=== PATIENT | male | born 1975 | race African-American/Black ===

== ENCOUNTER 2020-06-14 10:07 | Emergency (ER) | payer OTHER ==
[~2020-06-14 10:07] MED LIST: CATAPRES0.1 MG PO; COREG25 MG PO; HUMALOG 75100 UNIT/M SQ; HYDRALAZINE25 MG PO; LANTUS100 UNIT/1 SC; LASIX20 MG PO; LIPITOR40 MG PO; NORVASC5 MG PO; PERCOCET 5-3251 EACH PO; PRILOSEC20 MG PO; SERTRALINE HCL25 MG PO; SPS15 GM/60 M PO; VASOTEC5 MG PO; VITAMIN D2000 UNIT PO; ZOFRAN4 MG PO
[2020-06-14 11:46] LABS: BASOPHIL 0.2 % (0-2); EOSINOPHIL 0.3 % (0-5); HCT 27.9 % (42.0-52.0); HGB 8.7 g/dl (13.2-18.0); LYMPHOCYTE 5.5 % (15-48); MCHC 31.2 g/dL (32.0-36.0); MCV 86.6 fL (78.0-100.0); MONOCYTE 11.2 % (0-12); MPV 12.7 fL (6.0-9.5); NRBC 0; PLT 212 K/uL (150-400); RBC 3.22 M/uL (4.70-6.00); RDW 11.9 % (11.5-14.0); WBC 14.4 K/uL (4.0-10.5)
[2020-06-14 12:05] LABS: LACTIC ACID 0.8 mmol/L (0.4-1.9)
[2020-06-14 13:00] LABS: ALBUMIN 2.5 g/dL (3.4-5.0); BILIRUBIN - TOTAL 0.6 mg/dL (0.2-1.0); BUN/CREAT RATIO (CALC) 14.3 RATIO; CREATININE 5.16 mg/dL (0.67-1.17); GLOBULIN (CALCULATION) 3.8 g/dL; POTASSIUM 4.7 mmol/L (3.5-5.1); TOTAL PROTEIN 6.3 g/dL (6.4-8.2)
== END 2020-06-14 17:28 | disposition other institution (70) ==
LOC: FER 10:07
PROVIDERS: Emergency Medicine
DX: M86.8X7 Other osteomyelitis, ankle and foot (principal); I12.9 Hypertensive chronic kidney disease with stage 1 through stage 4 chronic kidney disease, or unspecified chronic kidney disease; N18.4 Chronic kidney disease, stage 4 (severe); Z89.511 Acquired absence of right leg below knee; Z20.822 Contact with and (suspected) exposure to COVID-19
CPT/HCPCS: 36415; 73700; 80053; 83605; 84145; 85025; 87040; J3370; J7050; U0002

== ENCOUNTER 2020-11-08 21:24 | Emergency (ER) | payer OTHER ==
[2020-11-08 22:35] LABS: BASOPHIL 0.5 % (0-2); EOSINOPHIL 2.2 % (0-5); HCT 28.4 % (42.0-52.0); LYMPHOCYTE 27.3 % (15-48); MCH 27.2 pg (25.0-31.0); MCHC 31.7 g/dL (32.0-36.0); MCV 85.8 fL (78.0-100.0); MONOCYTE 13.9 % (0-12); MPV 12.9 fL (6.0-9.5); NEUTROPHIL 55.8 % (41-80); NRBC 0; PLT 200 K/uL (150-400); RBC 3.31 M/uL (4.70-6.00); RDW 13.8 % (11.5-14.0); WBC 6.4 K/uL (4.0-10.5)
[2020-11-08 22:52] LABS: BILIRUBIN - TOTAL 0.2 mg/dL (0.2-1.0); BUN/CREAT RATIO (CALC) 13.7 RATIO; CREATININE 3.64 mg/dL (0.67-1.17); GLOBULIN (CALCULATION) 3.9 g/dL; POTASSIUM 5.6 mmol/L (3.5-5.1); TOTAL PROTEIN 6.9 g/dL (6.4-8.2); URIC ACID 6.9 mg/dL (3.5-7.2)
[2020-11-08] MEDS ORDERED: CLEOCIN300 MG PO (23:16)
== END 2020-11-09 00:20 | disposition home or self-care (01) ==
LOC: FER 21:24
PROVIDERS: Emergency Medicine
DX: E11.621 Type 2 diabetes mellitus with foot ulcer (principal); L97.529 Non-pressure chronic ulcer of other part of left foot with unspecified severity; L08.9 Local infection of the skin and subcutaneous tissue, unspecified; I10 Essential (primary) hypertension; Z79.899 Other long term (current) drug therapy
CPT/HCPCS: 36415; 73630; 80053; 83605; 84550; 85025; J7030